=== PATIENT | female | born 1960 | race Caucasian/White ===

== ENCOUNTER 2018-01-25 08:59 | Emergency (ER) | payer OTHER ==
[2018-01-25 09:11] VITALS: BP 151/87
--- NOTE | 2018-01-25 09:43 | UC ---
Cardiac HPI - HPI Summary HPI Summary: 57 YO FEMALE WITH THE ONSET OF SPASMOTIC SHOOTING PAIN FROM LEFT MID BACK FORWARD TO UNDER LEFT BREAST PAIN WORSE WITH DEEP INSPIRATION OR TWISTING/LEANING TO LEFT NO F/C NO SOB NO ABD PAIN NO N/V/D HAD SIMILAR PAIN A WEEK AGO MILD URI SYMPTOMS - History of Current Complaint Chief Complaint: UCChestPain Stated Complaint: BACK PAIN Time Seen by Provider: 01/25/18 09:29 Hx Obtained From: Patient Onset/Duration: Sudden Onset, Lasting Hours Initial Severity: Severe Current Severity: Mild Pain Intensity: 8 - 8 AT MAX Chest Pain Location: Left Lateral Character: Tightness, Sharp/Stabbing Aggravating Factor(s): Deep Breaths, Other - TWISTING LEANING TO LEFT Alleviating Factor(s): Spontaneous Resolution Associated Signs & Symptoms: Positive: Chest Pain - Allergy/Home Medications Allergies/Adverse Reactions: Allergies Allergy/AdvReac Type Severity Reaction Status Date / Time No Known Allergies Allergy Verified 01/25/18 09:12 Home Medications: Home Medications Aspirin/Acetaminophen/Caffeine [Excedrin Extra Strength Caplet] 1 each PO DAILY PRN 01/25/18 [History Confirmed 01/25/18] Multivitamin [Multivitamins] 1 cap PO DAILY 01/25/18 [History Confirmed 01/25/18 ] Sertraline* [Zoloft*] 50 mg PO DAILY 01/25/18 [History Confirmed 01/25/18] PMH/Surg Hx/FS Hx/Imm Hx Previously Healthy: Yes - Surgical History Surgical History: None - Family History Known Family History: Positive: Other Negative: Cardiac Disease, Hypertension Family History: Chrystal's disease, liver dz - Social History Alcohol Use: Rare Alcohol Amount: 2x week Substance Use Type: None Smoking Status (MU): Never Smoked Tobacco Review of Systems Constitutional: Negative Skin: Negative Eyes: Negative ENT: Negative Respiratory: Negative Cardiovascular: Chest Pain Gastrointestinal: Negative Genitourinary: Negative Motor: Negative Neurovascular: Negative Musculoskeletal: Negative Neurological: Negative Psychological: Negative Is Patient Immunocompromised?: No All Other Systems Reviewed And Are Negative: Yes Physical Exam Triage Information Reviewed: Yes Appearance: Well-Appearing, No Pain Distress, Well-Nourished Vital Signs: Initial Vital Signs Temp 97.5 F 01/25/18 09:07 Pulse 84 01/25/18 09:07 Resp 16 01/25/18 09:07 BP 151/87 01/25/18 09:07 Pulse Ox 99 01/25/18 09:07 Vital Signs Reviewed: Yes Eyes: Positive: Conjunctiva Clear ENT: Positive: Hearing grossly normal. Negative: Nasal congestion, Nasal drainage, Trismus, Muffled voice, Hoarse voice Neck: Positive: Supple, Nontender, No Lymphadenopathy Respiratory: Positive: Lungs clear, Normal breath sounds, No respiratory distress, No accessory muscle use. Negative: Respiratory distress Cardiovascular: Positive: RRR, No Murmur Abdomen Description: Positive: Nontender, No Organomegaly, Soft. Negative: CVA Tenderness (R), CVA Tenderness (L) Bowel Sounds: Positive: Present Neurological: Positive: Alert Psychological Exam: Normal Skin Exam: Normal Diagnostics - Radiology No standard instances Xray Interpretation: No Acute Changes - CXR Radiology Interpretation Completed By: Radiologist - EKG Cardiac Rate: NL Cardiac Rhythm: Sinus: Normal Ectopy: None ST Segment: Normal - Clinical Impression Provider Diagnoses: CHEST WALL PAIN Discharge - Sign-Out/Discharge Documenting (check all that apply): Discharge - Discharge Plan Condition: Stable Disposition: HOME Patient Education Materials: Chest Wall Pain (ED) Forms: *Work Release Referrals: Anita Sequeira MD [Primary Care Provider] - 1 Week (IF NOT BETTER) Additional Instructions: [facility] OR [facility] FOR PAIN RECHECK FOR NEW OR WORSENING SYMPTOMS EKG AND CHESST XR NORMAL - Billing Disposition and Condition Condition: STABLE Disposition: HOME
--- NOTE | 2018-01-25 09:57 | RAD ---
HISTORY: Left-sided chest pain COMPARISONS: December 16, 2008 VIEWS: 4: Frontal dual-energy and lateral views of the chest. FINDINGS: CARDIOMEDIASTINAL SILHOUETTE: The cardiomediastinal silhouette is normal. ADAM: The adam are normal. PLEURA: The costophrenic angles are sharp. No pleural abnormalities are noted. LUNG PARENCHYMA: The lungs are clear. ABDOMEN: The upper abdomen is clear. There is no subphrenic gas. BONES AND SOFT TISSUES: No bone or soft tissue abnormalities are noted. OTHER: None. IMPRESSION: NO ACTIVE CARDIOPULMONARY DISEASE.
== END 2018-01-25 10:15 | disposition home or self-care (01) ==
LOC: UCEAST 08:59
DX: R07.89 Other chest pain (principal); M54.6 Pain in thoracic spine
CPT/HCPCS: 71046; 93005; 99211; G0463